=== PATIENT | male | born 1975 | race Two or more races ===

== ENCOUNTER 2020-02-16 06:02 | Observation (INO) | payer SELFPAY ==
[~2020-02-16] VITALS: Ht 167.6 cm; Wt 84.1 kg
--- NOTE | 2020-02-16 06:39 | PHYS DOC ---
Past Medical History Past Medical History: Diabetes-Type II Smoking Status: Never Smoker Alcohol Use: Occasionally General Adult EDM: Chief Complaint: Congestion HPI: HPI: 44 yo M presenting to the ED with cough . He has had a cough fever and chills for a couple days. He was recently exposed to COVID-19, family member from [place] came to visit. He has myalgias that is a throbbing nonradiating mild to moderate pain worse at night improved with Tylenol and ibuprofen. He denies any dyspnea or headache. He describes having a chest pain that he describes as a sharp pain that is worse when he coughs. His chest pain resolves after coughing and is only present during coughing. He denies associated nausea or diaphoresis. He denies headache neck stiffness or nuchal rigidity vomiting all other review of systems negative. ED course: 44-year-old male presents emergency department today with flulike symptoms. On arrival the patient has a mildly low-grade temperature with mildly elevated heart rate. EKG shows sinus rhythm with a mildly tachycardic rate. ST segments congruent. Not suggestive of ACS. Heart Score: HEART Score for Chest Pain: HEART Score for Chest Pain Response (Comments) Value History Slighlty/Non-Suspicious 0 Age >45 - < 65 1 Risk Factors 1 or 2 Risk Factors 1 Total 2 Risk Factors: Risk Factors: DM, Current or recent (<one month) smoker, HTN, HLP, family history of CAD, obesity. Risk Scores: Score 0 - 3: 2.5% MACE over next 6 weeks - Discharge Home Score 4 - 6: 20.3% MACE over next 6 weeks - Admit for Clinical Observation Score 7 - 10: 72.7% MACE over next 6 weeks - Early Invasive Strategies Allergies: Allergies: Allergies Coded Allergies Type Severity Reaction Last Updated Verified No Known Drug Allergies 02/16/20 No Physical Exam: PE: Constitutional: Well developed, well nourished, no acute distress, non-toxic appearance. [] HENT: Normocephalic, atraumatic, bilateral external ears normal, oropharynx moist, no oral exudates, nose normal. [] Eyes: PERRLA, EOMI, conjunctiva normal, no discharge. [] Neck: Normal range of motion, no tenderness, supple, no stridor. [] Cardiovascular:Heart rate regular rhythm, no murmur [] Lungs & Thorax: Bilateral breath sounds clear to auscultation [] Abdomen: Bowel sounds normal, soft, no tenderness, no masses, no pulsatile masses. [] Skin: Warm, dry, no erythema, no rash. [] Back: No tenderness, no CVA tenderness. [] Extremities: No tenderness, no cyanosis, no clubbing, ROM intact, no edema. [] Neurologic: Alert and oriented X 3, normal motor function, normal sensory function, no focal deficits noted. [] Psychologic: Affect normal, judgement normal, mood normal. [] Current Patient Data: Vital Signs: Vital Signs Date Time Temp Pulse Resp B/P (MAP) Pulse Ox O2 Delivery O2 Flow Rate FiO2 02/16/20 06:15 100.1 108 18 159/88 (111) 97 Room Air 100.1 EKG: EKG: [] Radiology/Procedures: Radiology/Procedures: [] Course & Med Decision Making: Course & Med Decision Making Pertinent Labs and Imaging studies reviewed. (See chart for details) [] Dragon Disclaimer: Dragon Disclaimer: This electronic medical record was generated, in whole or in part, using a voice recognition dictation system. Departure Departure Impression: Primary Impression: Suspected COVID-19 virus infection Additional Instructions: Thank you for visiting [facility]. We appreciate you trusting us with your care. If any additional problems come up please don't hesitate to return to visit us. Follow up with your primary care provider so they can plan additional care if needed and know about the problem that you had today. If symptoms worsen come back to the Emergency Department. Any concerning symptoms that start such as chest pain, shortness of air, weakness or numbness on one side of the body, running high fevers or any other concerning symptoms return to the ER. You have a viral syndrome which may include symptoms like muscle aches, fevers, chills, runny nose, cough, sneezing, sore throat, nausea, vomiting, and/or diarrhea. One of the potential viruses that you may have is SARS-CoV-2, the virus that causes COVID-19, also known as the Coronavirus. You could have a different viral infection such as the common cold, flu, etc. Most patients with the Coronavirus have mild symptoms and recover on their own. Resting, staying hydrated, and sleep based on known cases can be helpful. As of todays visit, you are well enough to go home and treat your symptoms with oral fluids and over the counter medications. Please follow the following precautions at home: 1) Stay home except to get medical care. 2) As advised by the CDC, we recommend that you stay in your home and minimize contact with other people. We do not want you to spread the infection. 3) Those who are older or have significant medical issues may have more severe symptoms from this infection. We recommend self-isolation FOR AT LEAST 7 DAYS after your 1st day of symptoms. AFTER you feel better please wait AT LEAST ANOTHER WEEK before returning to regular activities and being around other people. 4) IF you become sicker and have difficulty breathing, chest pain, are unable to eat/drink, severe vomiting, diarrhea, or weakness you may need to return to the Emergency Department. 5) You should restrict activities outside of your home, except for getting medical care. DO NOT go to work, school, or public areas. Avoid using public transportation, ride sharing, or taxis. 6) Separate yourself from other people in your home. You should use a separate bathroom if possible. 7) Avoid sharing personal household items such as dishes, cups, eating ut ensils, towels, etc. 8) Clean all high touch surfaces every day (door knobs, counter tops, etc). Use a household cleaning spray or wipe per label instructions. 9) Clean your hands often. Wash your hands with soap and water for at least 20 seconds. 10) Cover your mouth and nose when you cough or sneeze. 11) Throw used tissues in the trash and immediately wash your hands. For additional resources please visit the CDC website or the [facility] ([phone]), you may also call 311 for further information. Justicifation of Admission Dx: Justifications for Admission: Justification of Admission Dx: No HERMELINDO GILMAN MD Feb 16, 2020 06:39
[2020-02-16 06:44] LABS: BASO % 0 % (0-3); EOS % 0 % (0-3); HEMATOCRIT 45.4 % (39.0-53.0); HEMOGLOBIN 15.5 g/dL (13.0-17.5); LYMPH # 1.1 x10^3/uL (1.0-4.8); LYMPH % 22 % (24-48); MEAN CORPUSCULAR HEMOGLOBIN 31 pg (25-35); MEAN CORPUSCULAR HGB CONC 34 g/dL (31-37); MEAN CORPUSCULAR VOLUME 92 fL (79-100); MONO # 0.7 x10^3/uL (0.0-1.1); MONO % 13 % (0-9); NEUT # 3.2 x10^3/uL (1.8-7.7); NEUT % 64 % (31-73); PLATELET COUNT 228 x10^3/uL (140-400); RED BLOOD COUNT 4.96 x10^6/uL (4.30-5.70); RED CELL DISTRIBUTION WIDTH 12.1 % (11.5-14.5); WHITE BLOOD COUNT 4.9 x10^3/uL (4.0-11.0)
[2020-02-16] MEDS ORDERED: IV NORMAL SALINE 1000ML BAG 1,000 ML IV ONE ×2 (06:45→07:15)
[2020-02-16] MEDS ORDERED: ACETAMINOPHEN 325 MG TABLET. PO ONE (06:45)
[2020-02-16 06:55] LABS: BILIRUBIN,URINE NEGATIVE (NEG); CLARITY,URINE CLEAR; COLOR,URINE YELLOW; NITRITE,URINE NEGATIVE (NEG); PH,URINE 5.5 (<5.0-8.0); PROTEIN,URINE 30 mg/dL (NEG-TRACE); UROBILINOGEN,URINE 0.2 mg/dL (0.2 mg/dL)
[2020-02-16 07:00] LABS: ALBUMIN 4.1 g/dL (3.4-5.0); ALBUMIN/GLOBULIN RATIO 1.2 (1.0-1.7); CALCIUM 8.8 mg/dL (8.5-10.1); CREATININE 0.9 mg/dL (0.7-1.3); GFR 91.3; POTASSIUM 4.6 mmol/L (3.5-5.1); TOTAL BILIRUBIN 0.4 mg/dL (0.2-1.0); TOTAL PROTEIN 7.6 g/dL (6.4-8.2)
--- NOTE | 2020-02-16 07:04 | RAD ---
CHEST AP ONLY INDICATION: Reason: cough / Spl. Instructions: / History: . COMPARISON STUDY: None. FINDINGS: Lungs: Normal lung volume. No pulmonary mass or consolidation. The tracheobronchial tree and hilar structures are normal. Pleura: No pleural effusion or pneumothorax. Heart and Mediastinum: The cardiomediastinal silhouette is normal. The great vessels of the thorax are normal. Bones and Soft Tissues: The bones and soft tissues are within normal limits. IMPRESSION: No acute cardiopulmonary process. Electronically signed by: Jeffrey Roman MD (02/16/2020 7:01 AM) [facility]
[2020-02-16 07:06] LABS: BACTERIA,URINE 0 /HPF (0-FEW); RBC,URINE 0 /HPF (0-2); SQUAMOUS EPITHELIAL CELL,UR OCC /LPF; WBC,URINE 0 /HPF (0-4)
[2020-02-16] MEDS ORDERED: INSULIN REGULAR 100 UNIT/ML 3ML VIAL. IV ONE (07:15)
[2020-02-16 08:49] LABS: C-REACTIVE PROTEIN 5.3 mg/L (0-3.3)
[2020-02-16 08:57] LABS: PROTHROMBIN TIME PATIENT 13.2 SEC (11.7-14.0)
[2020-02-16] MEDS ORDERED: DEXTROSE 50% 25 GM / 50ML DISP.SYRIN. IV PRN (09:00)
--- NOTE | 2020-02-16 09:06 | PDOC1 ---
History and Physical Date of Admission Date of Admission DATE: 02/16/20 TIME: 08:59 Identification/Chief Complaint Chief Complaint SEEN IN ER WITH VIRAL SYNDROME ED with cough . He has had a cough fever and chills for 2 DAYS // recently exposed to COVID-19, family member from [place] came to visit. , myalgias that is a throbbing nonradiating mild to moderate pain worse at night improved with Tylenol and ibuprofen. He denies any dyspnea or headache. describes having a chest pain that he describes as a sharp pain that is worse when he coughs. Past Medical History Past Medical History Past Medical History Past Medical History: Diabetes-Type II Smoking Status: Never Smoker Alcohol Use: Occasionally FHX HTN Family History Family History: Hypertension Social History Smoke: No ALCOHOL: none Drugs: None Current Problem List Problem List Problems Medical Problems: (1) Suspected COVID-19 virus infection Status: Acute Current Medications Current Medications Current Medications Sodium Chloride 1,000 ml @ 1,000 mls/hr 1X ONCE IV Last administered on 02/16/20at 07:50; Start 02/16/20 at 06:45; Stop 02/16/20 at 07:44; Status DC Acetaminophen (Tylenol) 650 mg 1X ONCE PO Last administered on 02/16/20at 07:51; Start 02/16/20 at 06:45; Stop 02/16/20 at 06:46; Status DC Sodium Chloride 1,000 ml @ 1,000 mls/hr 1X ONCE IV Last administered on 02/16/20at 07:50; Start 02/16/20 at 07:15; Stop 02/16/20 at 08:14; Status DC Insulin Human Regular (HumuLIN R VIAL) 10 unit 1X ONCE IV Last administered on 02/16/20at 07:56; Start 02/16/20 at 07:15; Stop 02/16/20 at 07:16; Status DC Allergies Allergies: Coded Allergies: No Known Drug Allergies (Unverified , 02/16/20) ROS Review of System denies headache neck stiffness or nuchal rigidity OR vomiting all 14 PT review of systems OTHERWISE negative. General: YES: Chills, Fatigue, Malaise PSYCHOLOGICAL ROS: No: Anxiety, Behavioral Disorder, Concentration difficultie, Decreased libido, Depression, Disorientation, Hallucinations, Hostility, Irritablity, Memory difficulties, Mood Swings, Obsessive thoughts, Physical abuse, Sexual abuse, Sleep disturbances, Suicidal ideation, Other Eyes: No Blurry vision, No Decreased vision, No Double vision, No Dry eyes, No Excessive tearing, No Eye Pain, No Itchy Eyes, No Loss of vision, No Photophobia, No Scotomata, No Uses contacts, No Uses glasses, No Other ALLERGY AND IMMUNOLOGY: No: Hives, Insect Bite Sensitivity, Itchy/Watery Eyes, Nasal Congestion, Post Nasal Drip, Seasonal Allergies, Other Hematological and Lymphatic: No: Bleeding Problems, Blood Clots, Blood Transfusions, Brusing, Night Sweats, Pallor, Swollen Lymph Nodes, Other Respiratory: YES: Cough Gastrointestinal: No Nausea, No Vomiting, No Abdominal Pain, No Diarrhea, No Constipation, No Melena, No Hematochezia, No Other Genitourinary: No Dysuria, No Frequency, No Incontinence, No Hematuria, No Retention, No Discharge, No Urgency, No Pain, No Flank Pain, No Other, No , No , No , No , No , No , No Musculoskeletal: No Gait Disturbance, No Joint Pain, No Joint Stiffness, No Joint Swelling, No Muscle Pain, No Muscular Weakness, No Pain In:, No Swelling In:, No Other Neurological: No Behavorial Changes, No Bowel/Bladder ControlChng, No Confusion, No Dizziness, No Gait Disturbance, No Headaches, No Impaired Coord/balance, No Memory Loss, No Numbness/Tingling, No Seizures, No Speech Problems, No Tremors, No Visual Changes, No Weakness, No Other Skin: No Dry Skin, No Eczema, No Hair Changes, No Lumps, No Mole Changes, No Mottling, No Nail Changes, No Pruritus, No Rash, No Skin Lesion Changes, No Other, No Acne Physical Exam Physical Exam Constitutional: Well developed, well nourished, no acute distress, non-toxic appearance. [] HENT: Normocephalic, atraumatic, bilateral external ears normal, oropharynx moist, no oral exudates, nose normal. [] Eyes: PERRLA, EOMI, conjunctiva normal, no discharge. [] Neck: Normal range of motion, no tenderness, supple, no stridor. [] Cardiovascular:Heart rate regular rhythm, no murmur [] Lungs & Thorax: Bilateral breath sounds clear to auscultation [] Abdomen: Bowel sounds normal, soft, no tenderness, no masses, no pulsatile masses. [] Skin: Warm, dry, no erythema, no rash. [] Back: No tenderness, no CVA tenderness. [] Extremities: No tenderness, no cyanosis, no clubbing, ROM intact, no edema. [] Neurologic: Alert and oriented X 3, normal motor function, normal sensory function, no focal deficits noted. [] Psychologic: Affect normal, judgement normal, mood normal. [] General: Cooperative Rectal Exam: not examined Extremities: No cyanosis Neuro: Normal speech, Cranial nerves 3-12 NL Psych/Mental Status: Mental status NL Vitals Vitals Vital Signs Date Time Temp Pulse Resp B/P (MAP) Pulse Ox O2 Delivery O2 Flow Rate FiO2 02/16/20 06:38 104 16 148/79 (102) 97 Room Air 02/16/20 06:15 100.1 100.1 Labs Labs Laboratory Tests Test 02/16/20 06:26 02/16/20 06:32 02/16/20 07:46 02/16/20 07:50 Urine Collection Type Void Urine Color Yellow Urine Clarity Clear Urine pH 5.5 (<5.0-8.0) Urine Specific [place] >=1.030 (1.000-1.030) Urine Protein 30 mg/dL (NEG-TRACE) Urine Glucose (UA) >=1000 mg/dL (NEG) Urine Ketones (Stick) >=80 mg/dL (NEG) Urine Blood Negative (NEG) Urine Nitrite Negative (NEG) Urine Bilirubin Negative (NEG) Urine Urobilinogen Dipstick 0.2 mg/dL (0.2 mg/dL) Urine Leukocyte Esterase Negative (NEG) Urine RBC 0 /HPF (0-2) Urine WBC 0 /HPF (0-4) Urine Squamous Epithelial Cells Occ /LPF Urine Bacteria 0 /HPF (0-FEW) White Blood Count 4.9 x10^3/uL (4.0-11.0) Red Blood Count 4.96 x10^6/uL (4.30-5.70) Hemoglobin 15.5 g/dL (13.0-17.5) Hematocrit 45.4 % (39.0-53.0) Mean Corpuscular Volume 92 fL (79-100) Mean Corpuscular Hemoglobin 31 pg (25-35) Mean Corpuscular Hemoglobin Concent 34 g/dL (31-37) Red Cell Distribution Width 12.1 % (11.5-14.5) Platelet Count 228 x10^3/uL (140-400) Neutrophils (%) (Auto) 64 % (31-73) Lymphocytes (%) (Auto) 22 % (24-48) Monocytes (%) (Auto) 13 % (0-9) Eosinophils (%) (Auto) 0 % (0-3) Basophils (%) (Auto) 0 % (0-3) Neutrophils # (Auto) 3.2 x10^3/uL (1.8-7.7) Lymphocytes # (Auto) 1.1 x10^3/uL (1.0-4.8) Monocytes # (Auto) 0.7 x10^3/uL (0.0-1.1) Eosinophils # (Auto) 0.0 x10^3/uL (0.0-0.7) Basophils # (Auto) 0.0 x10^3/uL (0.0-0.2) Sodium Level 132 mmol/L (136-145) Potassium Level 4.6 mmol/L (3.5-5.1) Chloride Level 96 mmol/L (98-107) Carbon Dioxide Level 17 mmol/L (21-32) Anion Gap 19 (6-14) Blood Urea Nitrogen 13 mg/dL (8-26) Creatinine 0.9 mg/dL (0.7-1.3) Estimated GFR (Cockcroft-Gault) 91.3 BUN/Creatinine Ratio 14 (6-20) Glucose Level 308 mg/dL (70-99) Calcium Level 8.8 mg/dL (8.5-10.1) Total Bilirubin 0.4 mg/dL (0.2-1.0) Aspartate Amino Transf (AST/SGOT) 21 U/L (15-37) Alanine Aminotransferase (ALT/SGPT) 45 U/L (16-63) Alkaline Phosphatase 72 U/L (46-116) Troponin I Quantitative < 0.017 ng/mL (0.000-0.055) Total Protein 7.6 g/dL (6.4-8.2) Albumin 4.1 g/dL (3.4-5.0) Albumin/Globulin Ratio 1.2 (1.0-1.7) Glucose (Fingerstick) 286 mg/dL (70-99) Ferritin 199 ng/mL (26-388) Lactate Dehydrogenase 116 U/L (85-227) Creatine Kinase 34 U/L (39-308) C-Reactive Protein, Quantitative 5.3 mg/L (0-3.3) Laboratory Tests Test 02/16/20 06:26 02/16/20 06:32 02/16/20 07:46 02/16/20 07:50 Urine Collection Type Void Urine Color Yellow Urine Clarity Clear Urine pH 5.5 (<5.0-8.0) Urine Specific [place] >=1.030 (1.000-1.030) Urine Protein 30 mg/dL (NEG-TRACE) Urine Glucose (UA) >=1000 mg/dL (NEG) Urine Ketones (Stick) >=80 mg/dL (NEG) Urine Blood Negative (NEG) Urine Nitrite Negative (NEG) Urine Bilirubin Negative (NEG) Urine Urobilinogen Dipstick 0.2 mg/dL (0.2 mg/dL) Urine Leukocyte Esterase Negative (NEG) Urine RBC 0 /HPF (0-2) Urine WBC 0 /HPF (0-4) Urine Squamous Epithelial Cells Occ /LPF Urine Bacteria 0 /HPF (0-FEW) White Blood Count 4.9 x10^3/uL (4.0-11.0) Red Blood Count 4.96 x10^6/uL (4.30-5.70) Hemoglobin 15.5 g/dL (13.0-17.5) Hematocrit 45.4 % (39.0-53.0) Mean Corpuscular Volume 92 fL (79-100) Mean Corpuscular Hemoglobin 31 pg (25-35) Mean Corpuscular Hemoglobin Concent 34 g/dL (31-37) Red Cell Distribution Width 12.1 % (11.5-14.5) Platelet Count 228 x10^3/uL (140-400) Neutrophils (%) (Auto) 64 % (31-73) Lymphocytes (%) (Auto) 22 % (24-48) Monocytes (%) (Auto) 13 % (0-9) Eosinophils (%) (Auto) 0 % (0-3) Basophils (%) (Auto) 0 % (0-3) Neutrophils # (Auto) 3.2 x10^3/uL (1.8-7.7) Lymphocytes # (Auto) 1.1 x10^3/uL (1.0-4.8) Monocytes # (Auto) 0.7 x10^3/uL (0.0-1.1) Eosinophils # (Auto) 0.0 x10^3/uL (0.0-0.7) Basophils # (Auto) 0.0 x10^3/uL (0.0-0.2) Sodium Level 132 mmol/L (136-145) Potassium Level 4.6 mmol/L (3.5-5.1) Chloride Level 96 mmol/L (98-107) Carbon Dioxide Level 17 mmol/L (21-32) Anion Gap 19 (6-14) Blood Urea Nitrogen 13 mg/dL (8-26) Creatinine 0.9 mg/dL (0.7-1.3) Estimated GFR (Cockcroft-Gault) 91.3 BUN/Creatinine Ratio 14 (6-20) Glucose Level 308 mg/dL (70-99) Calcium Level 8.8 mg/dL (8.5-10.1) Total Bilirubin 0.4 mg/dL (0.2-1.0) Aspartate Amino Transf (AST/SGOT) 21 U/L (15-37) Alanine Aminotransferase (ALT/SGPT) 45 U/L (16-63) Alkaline Phosphatase 72 U/L (46-116) Troponin I Quantitative < 0.017 ng/mL (0.000-0.055) Total Protein 7.6 g/dL (6.4-8.2) Albumin 4.1 g/dL (3.4-5.0) Albumin/Globulin Ratio 1.2 (1.0-1.7) Glucose (Fingerstick) 286 mg/dL (70-99) Ferritin 199 ng/mL (26-388) Lactate Dehydrogenase 116 U/L (85-227) Creatine Kinase 34 U/L (39-308) C-Reactive Protein, Quantitative 5.3 mg/L (0-3.3) Images Images CHEST AP ONLY INDICATION: Reason: cough / Spl. Instructions: / History: . COMPARISON STUDY: None. FINDINGS: Lungs: Normal lung volume. No pulmonary mass or consolidation. The tracheobronchial tree and hilar structures are normal. Pleura: No pleural effusion or pneumothorax. Heart and Mediastinum: The cardiomediastinal silhouette is normal. The great vessels of the thorax are normal. Bones and Soft Tissues: The bones and soft tissues are within normal limits. IMPRESSION: No acute cardiopulmonary process. Electronically signed by: Theodora Hassan MD (02/16/2020 7:01 AM) [facility] DICTATED and SIGNED BY: THEODORA HASSAN MD DATE: 02/16/20 0701 VTE Prophylaxis Ordered VTE Prophylaxis Devices: Yes VTE Pharmacological Prophylaxi: Yes Assessment/Plan Assessment/Plan Impression: FEVER AND COUGH, viral syndrome Suspected COVID-19 virus infection DKA hx uncontrolled diabetes PLAN admit insulin drip protocol iv fluid support dvt prophylaxis supportive measures A1C COVID-19 SCREEN D/W ER Justicifation of Admission Dx: Justifications for Admission: Justification of Admission Dx: No MAIKEL ALTAMIRANO MD Feb 16, 2020 09:06
[2020-02-16] MEDS ORDERED: MAG HYDROX/ALUMINUM HYD/SIMETH 30 ML ORAL.SUSP PO PRN (09:15)
[2020-02-16] MEDS ORDERED: ALBUTEROL SULFATE 2.5 MG/3 ML NEBU. NEB PRN (09:15)
[2020-02-16] MEDS ORDERED: SODIUM PHOSPHATES 19/7GM 133 ML ENEMA. PR PRN (09:15)
[2020-02-16] MEDS ORDERED: DOCUSATE SODIUM 100 MG CAPSULE. PO PRN (09:15)
[2020-02-16] MEDS ORDERED: cloNIDine HCL 0.1 MG TABLET PO PRN (09:15)
[2020-02-16] MEDS ORDERED: ONDANSETRON PF 4 MG/2 ML VIAL. IV PRN (09:15)
[2020-02-16] MEDS ORDERED: ACETAMINOPHEN 325 MG TABLET. PO PRN ×2 (09:15→17:30)
[2020-02-16] MEDS ORDERED: LORazepam 0.5 MG TABLET PO PRN (09:15)
[2020-02-16] MEDS ORDERED: 0.9 % SODIUM CHLORIDE 10 ML DISP.SYRIN. IV PRN (09:15)
[2020-02-16 11:00] VITALS: BP 126/77
[2020-02-16] MEDS: IV NORMAL SALINE 1000ML BAG 1,000 ML IV SCH ×2 (12:47→21:24)
[2020-02-16] MEDS: ENOXAPARIN 40 MG/0.4 ML SYRINGE. SQ SCH ×2 (12:48→21:23)
[2020-02-16] MEDS: INSULIN REGULAR VIAL 100 UNIT in IV NORMAL SALINE 100ML 100 ML IV PRN (12:49)
[2020-02-16 15:12] VITALS: BP 130/75
[2020-02-16 18:36] LABS: CALCIUM 8.3 mg/dL (8.5-10.1); CREATININE 0.9 mg/dL (0.7-1.3); GFR 91.3; POTASSIUM 3.7 mmol/L (3.5-5.1)
[2020-02-16 19:00] VITALS: BP 144/77
[2020-02-16] MEDS: BENZOCAINE/MENTHOL LOZENGE. PO PRN (22:24)
--- NOTE | 2020-02-16 22:31 | CONS ---
DATE OF CONSULTATION: 02/16/2020 ATTENDING PHYSICIAN: Dr. Turner. CONSULTING PHYSICIAN: Malathi Alvarado MD REASON FOR CONSULTATION: The patient is seen in pulmonary consultation at the request of Dr. Turner for possible COVID-19. HISTORY OF PRESENT ILLNESS: The patient is a 44-year-old who presented with cough, fever for a couple of days. He was recently exposed to multiple family members with COVID-19 from [place]. He comes in with myalgia. He has taken some Tylenol, ibuprofen at home. Denies headaches or diplopia. He has a cough, but he is not very short of breath. I was asked to see him in consultation. The patient is currently up on COVID unit. He is receiving treatment for elevated blood sugars. I have reviewed his labs. White count was normal. Hemoglobin and hematocrit were noted. He did have a leukopenia. His SARS COVID-2 is pending. PAST MEDICAL HISTORY: Type 2 diabetes. SOCIAL HISTORY: He is not smoking. FAMILY HISTORY: Multiple family members with COVID-19. ALLERGIES: No known drug allergies. PHYSICAL EXAMINATION: GENERAL: The patient seen during the COVID-19 pandemic. Visual examination revealed that the patient is in no respiratory distress. VITAL SIGNS: Otherwise stable. He did have a T-max of 101. Nurse reports no significant difficulty with breathing. LABORATORY DATA: Reviewed. Chest x-ray was likewise reviewed. There was no acute infiltrates. IMPRESSION: 1. COVID-19 suspect. 2. Fever secondary to possible above. 3. Diabetic ketoacidosis. 4. History of type 2 diabetes. PLAN: 1. Continue insulin drip. 2. Follow up on SARS COVID-2 test. 3. IV fluids. 4. DVT prophylaxis. 5. Considering the patient's relatively stable respiratory status, no need for steroids at this time or other intervention. He is doing well on room air. MALATHI ALVARADO MD DR: PHIL/franca JOB#: [id number] / [id number]
[2020-02-16 23:26] VITALS: BP 125/80
[2020-02-17 00:07] LABS: HEMOGLOBIN A1C 9.7 % (4.8-5.6)
[2020-02-17 03:22] VITALS: BP 165/84
[2020-02-17 04:45] LABS: BASO % 1 % (0-3); EOS % 0 % (0-3); HEMATOCRIT 39.8 % (39.0-53.0); LYMPH # 1.5 x10^3/uL (1.0-4.8); LYMPH % 33 % (24-48); MEAN CORPUSCULAR HEMOGLOBIN 32 pg (25-35); MEAN CORPUSCULAR HGB CONC 35 g/dL (31-37); MEAN CORPUSCULAR VOLUME 91 fL (79-100); MONO # 0.6 x10^3/uL (0.0-1.1); MONO % 13 % (0-9); NEUT # 2.4 x10^3/uL (1.8-7.7); NEUT % 54 % (31-73); PLATELET COUNT 213 x10^3/uL (140-400); RED BLOOD COUNT 4.37 x10^6/uL (4.30-5.70); RED CELL DISTRIBUTION WIDTH 11.9 % (11.5-14.5); WHITE BLOOD COUNT 4.5 x10^3/uL (4.0-11.0)
[2020-02-17] MEDS: INSULIN REGULAR VIAL 100 UNIT in IV NORMAL SALINE 100ML 100 ML IV PRN ×2 (05:30→09:00)
[2020-02-17 05:40] LABS: ALBUMIN 3.2 g/dL (3.4-5.0); ALBUMIN/GLOBULIN RATIO 0.9 (1.0-1.7); CALCIUM 7.7 mg/dL (8.5-10.1); CREATININE 0.9 mg/dL (0.7-1.3); GFR 91.3; POTASSIUM 3.8 mmol/L (3.5-5.1); TOTAL BILIRUBIN 0.2 mg/dL (0.2-1.0); TOTAL PROTEIN 6.6 g/dL (6.4-8.2)
[2020-02-17 07:00] VITALS: BP 135/73
[2020-02-17] MEDS: ENOXAPARIN 40 MG/0.4 ML SYRINGE. SQ SCH ×2 (09:01→20:45)
[2020-02-17] MEDS: IV NORMAL SALINE 1000ML BAG 1,000 ML IV SCH (09:02)
[2020-02-17 10:53] VITALS: BP 140/105
[2020-02-17] MEDS: BENZOCAINE/MENTHOL LOZENGE. PO PRN ×2 (12:39→17:57)
--- NOTE | 2020-02-17 13:39 | PDOC ---
PULMONARY PROGRESS NOTES Subjective sob better, has cough, has diarrhea Vitals Vital Signs Date Time Temp Pulse Resp B/P (MAP) Pulse Ox O2 Delivery O2 Flow Rate FiO2 02/17/20 10:53 98.3 95 18 140/105 (117) 98 Room Air 98.3 Comments on ra no distress appears comfortable rrr no paradoxical abd motion no edema no rash alert Labs Laboratory Tests Test 02/16/20 06:26 02/16/20 06:32 02/16/20 07:46 02/16/20 07:50 Urine Collection Type Void Urine Color Yellow Urine Clarity Clear Urine pH 5.5 (<5.0-8.0) Urine Specific [place] >=1.030 (1.000-1.030) Urine Protein 30 mg/dL (NEG-TRACE) Urine Glucose (UA) >=1000 mg/dL (NEG) Urine Ketones (Stick) >=80 mg/dL (NEG) Urine Blood Negative (NEG) Urine Nitrite Negative (NEG) Urine Bilirubin Negative (NEG) Urine Urobilinogen Dipstick 0.2 mg/dL (0.2 mg/dL) Urine Leukocyte Esterase Negative (NEG) Urine RBC 0 /HPF (0-2) Urine WBC 0 /HPF (0-4) Urine Squamous Epithelial Cells Occ /LPF Urine Bacteria 0 /HPF (0-FEW) White Blood Count 4.9 x10^3/uL (4.0-11.0) Red Blood Count 4.96 x10^6/uL (4.30-5.70) Hemoglobin 15.5 g/dL (13.0-17.5) Hematocrit 45.4 % (39.0-53.0) Mean Corpuscular Volume 92 fL (79-100) Mean Corpuscular Hemoglobin 31 pg (25-35) Mean Corpuscular Hemoglobin Concent 34 g/dL (31-37) Red Cell Distribution Width 12.1 % (11.5-14.5) Platelet Count 228 x10^3/uL (140-400) Neutrophils (%) (Auto) 64 % (31-73) Lymphocytes (%) (Auto) 22 % (24-48) Monocytes (%) (Auto) 13 % (0-9) Eosinophils (%) (Auto) 0 % (0-3) Basophils (%) (Auto) 0 % (0-3) Neutrophils # (Auto) 3.2 x10^3/uL (1.8-7.7) Lymphocytes # (Auto) 1.1 x10^3/uL (1.0-4.8) Monocytes # (Auto) 0.7 x10^3/uL (0.0-1.1) Eosinophils # (Auto) 0.0 x10^3/uL (0.0-0.7) Basophils # (Auto) 0.0 x10^3/uL (0.0-0.2) Sodium Level 132 mmol/L (136-145) Potassium Level 4.6 mmol/L (3.5-5.1) Chloride Level 96 mmol/L (98-107) Carbon Dioxide Level 17 mmol/L (21-32) Anion Gap 19 (6-14) Blood Urea Nitrogen 13 mg/dL (8-26) Creatinine 0.9 mg/dL (0.7-1.3) Estimated GFR (Cockcroft-Gault) 91.3 BUN/Creatinine Ratio 14 (6-20) Glucose Level 308 mg/dL (70-99) Calcium Level 8.8 mg/dL (8.5-10.1) Total Bilirubin 0.4 mg/dL (0.2-1.0) Aspartate Amino Transf (AST/SGOT) 21 U/L (15-37) Alanine Aminotransferase (ALT/SGPT) 45 U/L (16-63) Alkaline Phosphatase 72 U/L (46-116) Troponin I Quantitative < 0.017 ng/mL (0.000-0.055) Total Protein 7.6 g/dL (6.4-8.2) Albumin 4.1 g/dL (3.4-5.0) Albumin/Globulin Ratio 1.2 (1.0-1.7) Glucose (Fingerstick) 286 mg/dL (70-99) Ferritin 199 ng/mL (26-388) Lactate Dehydrogenase 116 U/L (85-227) Creatine Kinase 34 U/L (39-308) C-Reactive Protein, Quantitative 5.3 mg/L (0-3.3) Test 02/16/20 08:35 02/16/20 10:22 02/16/20 12:39 02/16/20 13:49 Prothrombin Time 13.2 SEC (11.7-14.0) Prothromb Time International Ratio 1.0 (0.8-1.1) Hemoglobin A1c 9.7 % (4.8-5.6) Glucose (Fingerstick) 191 mg/dL (70-99) 190 mg/dL (70-99) 184 mg/dL (70-99) Test 02/16/20 14:54 02/16/20 16:23 02/16/20 17:26 02/16/20 17:30 Glucose (Fingerstick) 138 mg/dL (70-99) 99 mg/dL (70-99) 96 mg/dL (70-99) Sodium Level 136 mmol/L (136-145) Potassium Level 3.7 mmol/L (3.5-5.1) Chloride Level 101 mmol/L (98-107) Carbon Dioxide Level 21 mmol/L (21-32) Anion Gap 14 (6-14) Blood Urea Nitrogen 9 mg/dL (8-26) Creatinine 0.9 mg/dL (0.7-1.3) Estimated GFR (Cockcroft-Gault) 91.3 Glucose Level 102 mg/dL (70-99) Calcium Level 8.3 mg/dL (8.5-10.1) Test 02/16/20 18:32 02/16/20 19:39 02/16/20 20:51 02/16/20 21:50 Glucose (Fingerstick) 171 mg/dL (70-99) 205 mg/dL (70-99) 189 mg/dL (70-99) 160 mg/dL (70-99) Test 02/16/20 23:34 02/17/20 01:32 02/17/20 03:05 02/17/20 04:00 Glucose (Fingerstick) 74 mg/dL (70-99) 147 mg/dL (70-99) 136 mg/dL (70-99) White Blood Count 4.5 x10^3/uL (4.0-11.0) Red Blood Count 4.37 x10^6/uL (4.30-5.70) Hemoglobin 14.0 g/dL (13.0-17.5) Hematocrit 39.8 % (39.0-53.0) Mean Corpuscular Volume 91 fL (79-100) Mean Corpuscular Hemoglobin 32 pg (25-35) Mean Corpuscular Hemoglobin Concent 35 g/dL (31-37) Red Cell Distribution Width 11.9 % (11.5-14.5) Platelet Count 213 x10^3/uL (140-400) Neutrophils (%) (Auto) 54 % (31-73) Lymphocytes (%) (Auto) 33 % (24-48) Monocytes (%) (Auto) 13 % (0-9) Eosinophils (%) (Auto) 0 % (0-3) Basophils (%) (Auto) 1 % (0-3) Neutrophils # (Auto) 2.4 x10^3/uL (1.8-7.7) Lymphocytes # (Auto) 1.5 x10^3/uL (1.0-4.8) Monocytes # (Auto) 0.6 x10^3/uL (0.0-1.1) Eosinophils # (Auto) 0.0 x10^3/uL (0.0-0.7) Basophils # (Auto) 0.0 x10^3/uL (0.0-0.2) Sodium Level 137 mmol/L (136-145) Potassium Level 3.8 mmol/L (3.5-5.1) Chloride Level 102 mmol/L (98-107) Carbon Dioxide Level 23 mmol/L (21-32) Anion Gap 12 (6-14) Blood Urea Nitrogen 9 mg/dL (8-26) Creatinine 0.9 mg/dL (0.7-1.3) Estimated GFR (Cockcroft-Gault) 91.3 BUN/Creatinine Ratio 10 (6-20) Glucose Level 137 mg/dL (70-99) Calcium Level 7.7 mg/dL (8.5-10.1) Total Bilirubin 0.2 mg/dL (0.2-1.0) Aspartate Amino Transf (AST/SGOT) 17 U/L (15-37) Alanine Aminotransferase (ALT/SGPT) 32 U/L (16-63) Alkaline Phosphatase 48 U/L (46-116) Total Protein 6.6 g/dL (6.4-8.2) Albumin 3.2 g/dL (3.4-5.0) Albumin/Globulin Ratio 0.9 (1.0-1.7) Test 02/17/20 04:15 02/17/20 05:00 02/17/20 05:59 02/17/20 07:38 Glucose (Fingerstick) 109 mg/dL (70-99) 97 mg/dL (70-99) 116 mg/dL (70-99) 200 mg/dL (70-99) Test 02/17/20 08:55 02/17/20 10:31 02/17/20 12:36 Glucose (Fingerstick) 262 mg/dL (70-99) 252 mg/dL (70-99) 204 mg/dL (70-99) Laboratory Tests Test 02/16/20 13:49 02/16/20 14:54 02/16/20 16:23 02/16/20 17:26 Glucose (Fingerstick) 184 mg/dL (70-99) 138 mg/dL (70-99) 99 mg/dL (70-99) 96 mg/dL (70-99) Test 02/16/20 17:30 02/16/20 18:32 02/16/20 19:39 02/16/20 20:51 Sodium Level 136 mmol/L (136-145) Potassium Level 3.7 mmol/L (3.5-5.1) Chloride Level 101 mmol/L (98-107) Carbon Dioxide Level 21 mmol/L (21-32) Anion Gap 14 (6-14) Blood Urea Nitrogen 9 mg/dL (8-26) Creatinine 0.9 mg/dL (0.7-1.3) Estimated GFR (Cockcroft-Gault) 91.3 Glucose Level 102 mg/dL (70-99) Calcium Level 8.3 mg/dL (8.5-10.1) Glucose (Fingerstick) 171 mg/dL (70-99) 205 mg/dL (70-99) 189 mg/dL (70-99) Test 02/16/20 21:50 02/16/20 23:34 02/17/20 01:32 02/17/20 03:05 Glucose (Fingerstick) 160 mg/dL (70-99) 74 mg/dL (70-99) 147 mg/dL (70-99) 136 mg/dL (70-99) Test 02/17/20 04:00 02/17/20 04:15 02/17/20 05:00 02/17/20 05:59 White Blood Count 4.5 x10^3/uL (4.0-11.0) Red Blood Count 4.37 x10^6/uL (4.30-5.70) Hemoglobin 14.0 g/dL (13.0-17.5) Hematocrit 39.8 % (39.0-53.0) Mean Corpuscular Volume 91 fL (79-100) Mean Corpuscular Hemoglobin 32 pg (25-35) Mean Corpuscular Hemoglobin Concent 35 g/dL (31-37) Red Cell Distribution Width 11.9 % (11.5-14.5) Platelet Count 213 x10^3/uL (140-400) Neutrophils (%) (Auto) 54 % (31-73) Lymphocytes (%) (Auto) 33 % (24-48) Monocytes (%) (Auto) 13 % (0-9) Eosinophils (%) (Auto) 0 % (0-3) Basophils (%) (Auto) 1 % (0-3) Neutrophils # (Auto) 2.4 x10^3/uL (1.8-7.7) Lymphocytes # (Auto) 1.5 x10^3/uL (1.0-4.8) Monocytes # (Auto) 0.6 x10^3/uL (0.0-1.1) Eosinophils # (Auto) 0.0 x10^3/uL (0.0-0.7) Basophils # (Auto) 0.0 x10^3/uL (0.0-0.2) Sodium Level 137 mmol/L (136-145) Potassium Level 3.8 mmol/L (3.5-5.1) Chloride Level 102 mmol/L (98-107) Carbon Dioxide Level 23 mmol/L (21-32) Anion Gap 12 (6-14) Blood Urea Nitrogen 9 mg/dL (8-26) Creatinine 0.9 mg/dL (0.7-1.3) Estimated GFR (Cockcroft-Gault) 91.3 BUN/Creatinine Ratio 10 (6-20) Glucose Level 137 mg/dL (70-99) Calcium Level 7.7 mg/dL (8.5-10.1) Total Bilirubin 0.2 mg/dL (0.2-1.0) Aspartate Amino Transf (AST/SGOT) 17 U/L (15-37) Alanine Aminotransferase (ALT/SGPT) 32 U/L (16-63) Alkaline Phosphatase 48 U/L (46-116) Total Protein 6.6 g/dL (6.4-8.2) Albumin 3.2 g/dL (3.4-5.0) Albumin/Globulin Ratio 0.9 (1.0-1.7) Glucose (Fingerstick) 109 mg/dL (70-99) 97 mg/dL (70-99) 116 mg/dL (70-99) Test 02/17/20 07:38 02/17/20 08:55 02/17/20 10:31 02/17/20 12:36 Glucose (Fingerstick) 200 mg/dL (70-99) 262 mg/dL (70-99) 252 mg/dL (70-99) 204 mg/dL (70-99) Impression . IMPRESSION: 1. COVID-19 suspect. 2. Fever secondary to possible above. 3. Diabetic ketoacidosis. 4. History of type 2 diabetes. Plan . PLAN: 1. Continue insulin per primary. 2. Follow up on SARS COVID-2 test. 3. IV fluids. 4. DVT prophylaxis. 5. Considering the patient's relatively stable respiratory status, no need for steroids at this time or other intervention. He is doing well on room air. discussed w RENATA Sullivan MD Feb 17, 2020 13:39
[2020-02-17 14:48] VITALS: BP 139/77
[2020-02-17] MEDS ORDERED: DEXTROSE 50% 25 GM / 50ML DISP.SYRIN. IV PRN (16:30)
--- NOTE | 2020-02-17 16:45 | NUR ---
Patient's insulin dripped stopped at [address] Dejesus.
[2020-02-17] MEDS ORDERED: INSULIN LISPRO 300 UNITS/3 ML VIAL. SQ SCH (17:00)
[2020-02-17 19:55] VITALS: BP 144/86
[2020-02-17] MEDS ORDERED: INSULIN GLARGINE SYRINGE. SQ SCH (21:00)
--- NOTE | 2020-02-17 21:19 | PDOC ---
GENERAL General: Discharge summary [id number] VITAL SIGNS Vital Signs/I&O: Vital Signs Date Time Temp Pulse Resp B/P (MAP) Pulse Ox O2 Delivery O2 Flow Rate FiO2 02/17/20 19:57 Room Air 02/17/20 19:55 98.6 98 20 144/86 (105) 96 98.6 I & O 02/16/20 02/16/20 02/17/20 15:00 23:00 07:00 Intake Total 2000 ml 240 ml Output Total 0 ml Balance 2000 ml 240 ml 0 ml ALLERGIES Allergies: Allergies Coded Allergies Type Severity Reaction Last Updated Verified No Known Drug Allergies 02/16/20 No MEDS Medications: Current Medications Medications (Trade) Dose Ordered Sig/Luciana Route PRN Reason Start Time Stop Time Status Last Admin Dose Admin Insulin Glargine (Lantus Syringe) 10 unit QHS SQ 02/17/20 21:00 02/17/20 20:44 LAB Lab: Laboratory Tests Test 02/16/20 21:50 02/16/20 23:34 02/17/20 01:32 02/17/20 03:05 Glucose (Fingerstick) 160 mg/dL (70-99) H 74 mg/dL (70-99) 147 mg/dL (70-99) H 136 mg/dL (70-99) H Test 02/17/20 04:00 02/17/20 04:15 02/17/20 05:00 02/17/20 05:59 White Blood Count 4.5 x10^3/uL (4.0-11.0) Red Blood Count 4.37 x10^6/uL (4.30-5.70) Hemoglobin 14.0 g/dL (13.0-17.5) Hematocrit 39.8 % (39.0-53.0) Mean Corpuscular Volume 91 fL (79-100) Mean Corpuscular Hemoglobin 32 pg (25-35) Mean Corpuscular Hemoglobin Concent 35 g/dL (31-37) Red Cell Distribution Width 11.9 % (11.5-14.5) Platelet Count 213 x10^3/uL (140-400) Neutrophils (%) (Auto) 54 % (31-73) Lymphocytes (%) (Auto) 33 % (24-48) Monocytes (%) (Auto) 13 % (0-9) H Eosinophils (%) (Auto) 0 % (0-3) Basophils (%) (Auto) 1 % (0-3) Neutrophils # (Auto) 2.4 x10^3/uL (1.8-7.7) Lymphocytes # (Auto) 1.5 x10^3/uL (1.0-4.8) Monocytes # (Auto) 0.6 x10^3/uL (0.0-1.1) Eosinophils # (Auto) 0.0 x10^3/uL (0.0-0.7) Basophils # (Auto) 0.0 x10^3/uL (0.0-0.2) Sodium Level 137 mmol/L (136-145) Potassium Level 3.8 mmol/L (3.5-5.1) Chloride Level 102 mmol/L (98-107) Carbon Dioxide Level 23 mmol/L (21-32) Anion Gap 12 (6-14) Blood Urea Nitrogen 9 mg/dL (8-26) Creatinine 0.9 mg/dL (0.7-1.3) Estimated GFR (Cockcroft-Gault) 91.3 BUN/Creatinine Ratio 10 (6-20) Glucose Level 137 mg/dL (70-99) H Calcium Level 7.7 mg/dL (8.5-10.1) L Total Bilirubin 0.2 mg/dL (0.2-1.0) Aspartate Amino Transferase (AST) 17 U/L (15-37) Alanine Aminotransferase (ALT) 32 U/L (16-63) Alkaline Phosphatase 48 U/L (46-116) Total Protein 6.6 g/dL (6.4-8.2) Albumin 3.2 g/dL (3.4-5.0) L Albumin/Globulin Ratio 0.9 (1.0-1.7) L Glucose (Fingerstick) 109 mg/dL (70-99) H 97 mg/dL (70-99) 116 mg/dL (70-99) H Test 02/17/20 07:38 02/17/20 08:55 02/17/20 10:31 02/17/20 12:36 Glucose (Fingerstick) 200 mg/dL (70-99) H 262 mg/dL (70-99) H 252 mg/dL (70-99) H 204 mg/dL (70-99) H Test 02/17/20 14:20 02/17/20 15:25 02/17/20 16:59 02/17/20 17:52 Glucose (Fingerstick) 207 mg/dL (70-99) H 144 mg/dL (70-99) H 54 mg/dL (70-99) L 192 mg/dL (70-99) H Laboratory Tests 02/17/20 04:00 Laboratory Tests 02/17/20 04:00 Justicifation of Admission Dx: Justifications for Admission: Justification of Admission Dx: EMMIE Slaughter MD Feb 17, 2020 21:19
--- NOTE | 2020-02-17 22:52 | DS ---
DATE OF DISCHARGE: HOSPITAL COURSE: Today is hospital day #2 for this patient with longstanding uncontrolled diabetes, who had exposure to a family member, who came in from [place] and stayed overnight with him and his for one night. That person has since been diagnosed with COVID-19. The patient had aches and pains and low-grade subjective temperature at home, was admitted with diabetic ketoacidosis and evaluated for COVID-19. He is very eager to discharge this evening and feels that he will be able to quarantine and recover better at home. [facility] A[facility] He has had a difficult time keeping control of his sugar levels at home and has had periods of nonadherence to his regimen. He follows with Dr. Hawkins and typically takes Lantus 40 units in the morning. He reassures me that he will get in and speak with Dr. Hawkins about his ongoing plan. No change was made in his medication regimen. PHYSICAL EXAMINATION: VITAL SIGNS: Physical exam this evening is notable for that the patient has been afebrile, blood pressure has been in the 130s-140s, heart rate is in the 70s-90s and regular, he is breathing comfortably and saturating normally on room air. GENERAL: The patient is a pleasant 44-year-old man, alert and oriented x 3, in no acute distress. HEENT: Unremarkable. CHEST: Clear to auscultation. HEART: S1, S2 normal. Regular rate and rhythm. No murmurs or gallops are noted. ABDOMEN: Soft, nontender, nondistended. No masses or organomegaly noted. EXTREMITIES: Unremarkable for acute abnormality. FINAL DIAGNOSES: 1. Diabetic ketoacidosis, requiring overnight insulin infusion. He responded well to that and will discharge home on his usual insulin regimen with careful attention to adherence. 2. COVID-19 exposure from a visiting family member. His COVID-19 PCR is negative. EMMIE TONEY MD DR: YOSHI/franca JOB#: [id number] / [id number] ITA Lucero MD [facility]
== END 2020-02-17 21:15 | disposition home or self-care (01) ==
LOC: ER 06:02 → 6 SOUTH 07:20
PROVIDERS: ADMIT Family Medicine; ATTEND Family Medicine
DX: R50.9 Fever, unspecified (principal); Z20.828 Contact with and (suspected) exposure to other viral communicable diseases; E11.10 Type 2 diabetes mellitus with ketoacidosis without coma; D72.819 Decreased white blood cell count, unspecified; E78.5 Hyperlipidemia, unspecified; I10 Essential (primary) hypertension; B34.9 Viral infection, unspecified; Z79.4 Long term (current) use of insulin; Z87.891 Personal history of nicotine dependence
CPT/HCPCS: 36415; 71045; 80048; 80053; 81001; 82550; 82728; 82962; 83036; 83615; 84484; 85025; 85610; 86140; 96365; 96366; 96372; 96376; 99284; G0378; J1650; J1815; J7030; U0003; G0379